=== PATIENT | male | born 1995 | race American Indian/Alaskan Native ===

== ENCOUNTER 2020-12-15 05:59 | Emergency (ER) | payer SELFPAY ==
[2020-12-15] MEDS ORDERED: dexAMETHasone 20 MG/5 ML VIAL IM ONE (06:15)
[2020-12-15] MEDS ORDERED: AMOXICILLIN 500 MG CAP PO ONE (06:15)
[2020-12-15] MEDS ORDERED: IBUPROFEN 800 MG TAB PO ONE (06:15)
--- NOTE | 2020-12-15 06:15 | Emergency Department Report ---
ED General Adult HPI - General Chief complaint: Upper Respiratory Infection Stated complaint: chest pains Time Seen by Provider: 12/15/20 06:10 Source: patient Mode of arrival: Ambulatory Limitations: No Limitations - History of Present Illness Initial comments: Patient a 25-year-old male who presents for sore throat and dysphagia x2 days. Patient has history of strep throat in the past. Pain is described as 510 burning with swallowing. There is some nocturnal fever no T-max recorded at home. There is no nausea vomiting no dizziness no lightheadedness. There is no wheezing or stridor. - Related Data Previous Rx's Medication Instructions Recorded Last Taken Type Amoxicillin [Trimox CAP] 500 mg PO Q8H 7 Days #21 capsule 12/15/20 Unknown Rx Ibuprofen [Motrin 800 MG tab] 800 mg PO Q8HR PRN #30 tablet 12/15/20 Unknown Rx dexAMETHasone [Decadron] 4 mg PO BID 2 Days #4 tablet 12/15/20 Unknown Rx Allergies Allergy/AdvReac Type Severity Reaction Status Date / Time No Known Allergies Allergy Verified 05/29/15 22:44 ED Review of Systems ROS: Stated complaint: chest pains Other details as noted in HPI Constitutional: fever, malaise Eyes: denies: eye pain, eye discharge, vision change ENT: throat pain, congestion. denies: ear pain Respiratory: denies: cough, shortness of breath, wheezing Cardiovascular: denies: chest pain, palpitations Endocrine: no symptoms reported Gastrointestinal: denies: abdominal pain, nausea, vomiting, diarrhea Genitourinary: denies: urgency, dysuria Musculoskeletal: denies: back pain, joint swelling, arthralgia Skin: denies: rash, lesions Neurological: denies: headache, weakness, paresthesias Psychiatric: denies: anxiety, depression Hematological/Lymphatic: denies: easy bleeding, easy bruising ED Past Medical Hx - Past Medical History Hx Hypertension: No Hx CVA: No Hx Heart Attack/AMI: No Hx Congestive Heart Failure: No Hx Diabetes: No Hx Deep Vein Thrombosis: No Hx Pulmonary Embolism: No Hx GERD: No Hx Liver Disease: No Hx Renal Disease: No Hx Sickle Cell Disease: No Hx Arthritis: No Hx Headaches / Migraines: No Hx Seizures: No Hx Kidney Stones: No Hx Psychiatric Treatment: No Hx Asthma: No Hx COPD: No Hx Tuberculosis: No Hx Dementia: No Hx HIV: No - Surgical History Hx Coronary Stent: No Hx Open Heart Surgery: No Hx Pacemaker: No Hx Internal Defibrillator: No Hx Cholecystectomy: No Hx Appendectomy: No Hx Breast Surgery: No - Social History Smoking Status: Never Smoker - Medications Home Medications: Home Medications Medication Instructions Recorded Confirmed Last Taken Type Amoxicillin [Trimox CAP] 500 mg PO Q8H 7 Days #21 capsule 12/15/20 Unknown Rx Ibuprofen [Motrin 800 MG tab] 800 mg PO Q8HR PRN #30 tablet 12/15/20 Unknown Rx dexAMETHasone [Decadron] 4 mg PO BID 2 Days #4 tablet 12/15/20 Unknown Rx ED Physical Exam - General Limitations: No Limitations General appearance: alert, in no apparent distress - Head Head exam: Present: atraumatic, normocephalic - Eye Eye exam: Present: normal appearance, EOMI Pupils: Present: normal accommodation - ENT ENT exam: Present: mucous membranes moist, TM's normal bilaterally, normal external ear exam - Expanded ENT Exam Expanded Throat exam: Positive: tonsillar erythema, tonsillomegaly, tonsillar exudate, other (uvula midline no stridor no wheezing, moderate erythema , exudate, no peritonsilar abscess noted on exam ). Negative: R peritonsillar mass, L peritonsillar mass - Neck Neck exam: Present: normal inspection, full ROM, lymphadenopathy. Absent: tenderness - Respiratory Respiratory exam: Present: normal lung sounds bilaterally. Absent: respiratory distress, wheezes, stridor, chest wall tenderness - Cardiovascular Cardiovascular Exam: Present: regular rate, normal rhythm, normal heart sounds. Absent: systolic murmur, diastolic murmur, rubs, gallop - GI/Abdominal GI/Abdominal exam: Present: soft, normal bowel sounds. Absent: distended, tenderness - Rectal Rectal exam: Present: deferred - Extremities Exam Extremities exam: Present: normal inspection, full ROM - Back Exam Back exam: Present: normal inspection. Absent: CVA tenderness (R), CVA tenderness (L) - Neurological Exam Neurological exam: Present: alert, oriented X3 - Psychiatric Psychiatric exam: Present: normal affect, normal mood - Skin Skin exam: Present: warm, dry, intact, normal color. Absent: rash ED Course Vital Signs 12/15/20 06:03 Temperature 100.7 F H Pulse Rate 117 H Respiratory 18 Rate Blood Pressure 128/78 O2 Sat by Pulse 99 Oximetry ED Medical Decision Making - Radiology Data Radiology results: report reviewed, image reviewed - Medical Decision Making pharyngitis, plan, decadron, ibuprofen, amoxicillin follow up with pcp in 2-3 days, pt verbalized agreement and understanding of same. Critical care attestation.: If time is entered above; I have spent that time in minutes in the direct care of this critically ill patient, excluding procedure time. ED Disposition Clinical Impression: Pharyngitis Qualifiers: Pharyngitis/tonsillitis etiology: unspecified etiology Qualified Code(s): J02.9 - Acute pharyngitis, unspecified Disposition: TO HOME OR SELFCARE Is pt being admited?: No Does the pt Need Aspirin: No Condition: Stable Instructions: Pharyngitis Additional Instructions: warm salt water gargle 2-3 times daily Prescriptions: dexAMETHasone [Decadron] 4 mg PO BID 2 Days #4 tablet Ibuprofen [Motrin 800 MG tab] 800 mg PO Q8HR PRN #30 tablet PRN Reason: pain fever Amoxicillin [Trimox CAP] 500 mg PO Q8H 7 Days #21 capsule Referrals: DANIELE TARANGO MD [Staff Physician] - 3-5 Days Forms: Work/School Release Form(ED) Time of Disposition: 06:19
[2020-12-15 06:31] VITALS: BP 128/78
== END 2020-12-15 06:57 | disposition home or self-care (01) ==
LOC: ED 05:59
DX: J02.9 Acute pharyngitis, unspecified (principal); Z79.899 Other long term (current) drug therapy
CPT/HCPCS: 96372; 99282; J1100

== ENCOUNTER 2021-06-06 19:12 | Emergency (ER) | payer OTHER, SELFPAY ==
[2021-06-06] MEDS ORDERED: ACETAMINOPHEN 500 MG TAB PO ONE (21:42)
[2021-06-06] MEDS ORDERED: SODIUM CHLORIDE 0.9% 1000 ML 1,000 ML IV ONE (21:47)
[2021-06-06] MEDS ORDERED: KETOROLAC 30 MG/1 ML INJ IV ONE (21:47)
[2021-06-06 22:18] LABS: Basophils % (Auto) 0.2 % (0.0-1.8); Eosinophils % (Auto) 0.1 % (0.0-4.3); Hematocrit 46.8 % (35.5-45.6); Hemoglobin 15.5 gm/dl (11.8-15.2); Lymphocytes # (Auto) 0.8 K/mm3 (1.2-5.4); Lymphocytes % (Auto) 19.3 % (13.4-35.0); Mean Corpuscular HGB Conc 33 % (32-34); Mean Corpuscular Volume 93 fl (84-94); Monocytes # (Auto) 0.4 K/mm3 (0.0-0.8); Platelet Count 133 K/mm3 (140-440); Red Blood Count 5.04 M/mm3 (3.65-5.03); Red Cell Distribution Width 12.5 % (13.2-15.2)
[2021-06-06 22:33] LABS: Alanine Aminotransferase 21 units/L (7-56); Albumin 4.7 g/dL (3.9-5); BUN/Creatinine Ratio 19; Blood Urea Nitrogen 19 mg/dL (9-20); Calcium 9.5 mg/dL (8.4-10.2); Hemolysis Index 42
--- NOTE | 2021-06-06 22:43 | XRay Report ---
CHEST 2 VIEWS INDICATION / CLINICAL INFORMATION: COUGH, FEVER, COVID+. COMPARISON: None available. FINDINGS: SUPPORT DEVICES: None. HEART / MEDIASTINUM: No significant abnormality. LUNGS / PLEURA: No significant pulmonary or pleural abnormality. No pneumothorax. ADDITIONAL FINDINGS: No significant additional findings. IMPRESSION: 1. No acute findings. Signer Name: Mando Herring MD Signed: 06/06/2021 10:38 PM Workstation Name: [id number]
--- NOTE | 2021-06-06 23:44 | Emergency Department Report ---
ED General Adult HPI - General Chief complaint: Weakness Stated complaint: COVID+ BODY PAIN WEAKNESS SOB Source: patient Mode of arrival: Ambulatory Limitations: No Limitations - History of Present Illness Initial comments: Patient is a 25-year-old -[place] male with no past medical history presents to the ED with complaint of acute onset persistent severe diffuse body aches and pains, nausea, chills, fever intermittently over up to 101 F, nasal and sinus congestion, dry cough, generalized fatigue, generalized weakness, lack of appetite, loss of sense of smell and sense of taste for the last 4 days. Patient states that he tested positive for COVID-19 viral infection 24 hours ago and that in the last 12 hours his symptoms have worsened. Patient states that no one else at home has had similar symptoms. Patient denies dizziness, syncope, vomiting, diarrhea, dysuria, urinary frequency and urgency, chest pain, shortness of breath, sore throat, change in vision or headache. MD Complaint: Diffuse body aches and pains, weakness and fatigue, fever, chills -: Sudden, days(s) (3) Location: back, upper extremity, lower extremity Radiation: non-radiation Severity scale (0 -10): 5 Quality: aching, sharp, constant Consistency: constant Improves with: none Associated Symptoms: denies other symptoms, cough, fever/chills, headaches, loss of appetite, malaise, nausea/vomiting, weakness. denies: confusion, chest pain, diaphoresis, rash, seizure, shortness of breath, syncope Treatments Prior to Arrival: none - Related Data Previous Rx's Medication Instructions Recorded Last Taken Type Amoxicillin [Trimox CAP] 500 mg PO Q8H 7 Days #21 capsule 12/15/20 Unknown Rx Ibuprofen [Motrin 800 MG tab] 800 mg PO Q8HR PRN #30 tablet 12/15/20 Unknown Rx dexAMETHasone [Decadron] 4 mg PO BID 2 Days #4 tablet 12/15/20 Unknown Rx Acetaminophen 500 mg PO Q6H PRN #30 capsule 06/06/21 Unknown Rx Ascorbic Acid [Vitamin C] 1,000 mg PO Q12H #30 tablet 06/06/21 Unknown Rx Benzonatate [Tessalon Perles] 100 mg PO Q8HR #30 capsule 06/06/21 Unknown Rx Ondansetron [Zofran Odt] 4 mg PO Q8HR PRN #15 tab.rapdis 06/06/21 Unknown Rx Zinc Acetate [Galzin 50mg CAP] 50 mg PO DAILY #20 capsule 06/06/21 Unknown Rx Allergies Allergy/AdvReac Type Severity Reaction Status Date / Time No Known Allergies Allergy Verified 05/29/15 22:44 ED Review of Systems ROS: Stated complaint: COVID+ BODY PAIN WEAKNESS SOB Other details as noted in HPI Constitutional: chills, fever, malaise, weakness Eyes: denies: eye pain, eye discharge, vision change ENT: congestion. denies: ear pain, throat pain Respiratory: cough. denies: shortness of breath, wheezing Cardiovascular: denies: chest pain, palpitations Endocrine: no symptoms reported Gastrointestinal: nausea. denies: abdominal pain, vomiting, diarrhea Genitourinary: denies: urgency, dysuria Musculoskeletal: back pain, arthralgia, myalgia. denies: joint swelling Skin: denies: rash, lesions Neurological: headache. denies: weakness, paresthesias Psychiatric: denies: anxiety, depression Hematological/Lymphatic: denies: easy bleeding, easy bruising ED Past Medical Hx - Past Medical History Hx Hypertension: No Hx CVA: No Hx Heart Attack/AMI: No Hx Congestive Heart Failure: No Hx Diabetes: No Hx Deep Vein Thrombosis: No Hx Pulmonary Embolism: No Hx GERD: No Hx Liver Disease: No Hx Renal Disease: No Hx Sickle Cell Disease: No Hx Arthritis: No Hx Headaches / Migraines: No Hx Seizures: No Hx Kidney Stones: No Hx Psychiatric Treatment: No Hx Asthma: No Hx COPD: No Hx Tuberculosis: No Hx Dementia: No Hx HIV: No - Surgical History Hx Coronary Stent: No Hx Open Heart Surgery: No Hx Pacemaker: No Hx Internal Defibrillator: No Hx Cholecystectomy: No Hx Appendectomy: No Hx Breast Surgery: No - Social History Smoking Status: Never Smoker - Medications Home Medications: Home Medications Medication Instructions Recorded Confirmed Last Taken Type Amoxicillin [Trimox CAP] 500 mg PO Q8H 7 Days #21 capsule 12/15/20 Unknown Rx Ibuprofen [Motrin 800 MG tab] 800 mg PO Q8HR PRN #30 tablet 12/15/20 Unknown Rx dexAMETHasone [Decadron] 4 mg PO BID 2 Days #4 tablet 12/15/20 Unknown Rx Acetaminophen 500 mg PO Q6H PRN #30 capsule 06/06/21 Unknown Rx Ascorbic Acid [Vitamin C] 1,000 mg PO Q12H #30 tablet 06/06/21 Unknown Rx Benzonatate [Tessalon Perles] 100 mg PO Q8HR #30 capsule 06/06/21 Unknown Rx Ondansetron [Zofran Odt] 4 mg PO Q8HR PRN #15 tab.rapdis 06/06/21 Unknown Rx Zinc Acetate [Galzin 50mg CAP] 50 mg PO DAILY #20 capsule 06/06/21 Unknown Rx ED Physical Exam - General Limitations: No Limitations General appearance: alert, in no apparent distress - Head Head exam: Present: atraumatic, normocephalic, normal inspection - Eye Eye exam: Present: normal appearance, PERRL, EOMI Pupils: Present: normal accommodation - ENT ENT exam: Present: normal exam, normal orophraynx, mucous membranes moist, TM's normal bilaterally, normal external ear exam - Neck Neck exam: Present: normal inspection, full ROM - Respiratory Respiratory exam: Present: normal lung sounds bilaterally. Absent: respiratory distress, wheezes, rales, rhonchi, chest wall tenderness, accessory muscle use, decreased breath sounds, prolonged expiratory - Cardiovascular Cardiovascular Exam: Present: regular rate, normal rhythm, normal heart sounds. Absent: systolic murmur, diastolic murmur, rubs, gallop - GI/Abdominal GI/Abdominal exam: Present: soft, normal bowel sounds. Absent: tenderness, guarding, rebound, hyperactive bowel sounds, hypoactive bowel sounds, organomegaly - Extremities Exam Extremities exam: Present: normal inspection, full ROM, normal capillary refill - Back Exam Back exam: Present: normal inspection, full ROM. Absent: tenderness, CVA tenderness (R), CVA tenderness (L), muscle spasm, paraspinal tenderness, vertebral tenderness, rash noted - Neurological Exam Neurological exam: Present: alert, oriented X3, CN II-XII intact, normal gait, reflexes normal - Psychiatric Psychiatric exam: Present: normal affect, normal mood - Skin Skin exam: Present: warm, dry, intact, normal color. Absent: rash ED Course Vital Signs 06/06/21 06/06/21 21:36 23:46 Temperature 101.8 F H 98.9 F Pulse Rate 97 H 74 Respiratory 18 18 Rate Blood Pressure 110/71 121/63 [Left] O2 Sat by Pulse 97 98 Oximetry ED Medical Decision Making - Lab Data Result diagrams: 06/06/21 22:01 06/06/21 22:01 - Radiology Data Radiology results: report reviewed, image reviewed [facility] [address] [place] [address] XRay Report Signed Patient: CK LOUIS MR#: [id number] : 1995 Acct:[id number] Age/Sex: 25 / M ADM Date: 06/06/21 Loc: ED Attending Dr: Ordering Physician: JOSE DE JESUS HERNANDEZ Date of Service: 06/06/21 Procedure(s): XR chest routine 2V Accession Number(s): [id number] cc: JOSE DE JESUS HERNANDEZ Fluoro Time In Minutes: CHEST 2 VIEWS INDICATION / CLINICAL INFORMATION: COUGH, FEVER, COVID+. COMPARISON: None available. FINDINGS: SUPPORT DEVICES: None. HEART / MEDIASTINUM: No significant abnormality. LUNGS / PLEURA: No significant pulmonary or pleural abnormality. No pneumothorax. ADDITIONAL FINDINGS: No significant additional findings. IMPRESSION: 1. No acute findings. Signer Name: Ralf Herring MD Signed: 06/06/2021 10:38 PM Workstation Name: [id number] Transcribed By: DB Dictated By: RALF HERRING MD Electronically Authenticated By: RALF HERRING MD Signed Date/Time: 06/06/212237 DD/ 37 TD/TT: - Medical Decision Making This is a 25-year-old -[place] male with no past medical history pre sents to the ED with complaint of acute onset persistent severe diffuse body aches and pains, nausea, chills, fever intermittently over up to 101 F, nasal and sinus congestion, dry cough, generalized fatigue, generalized weakness, lack of appetite, loss of sense of smell and sense of taste for the last 4 days. Patient states that he tested positive for COVID-19 viral infection 24 hours ago and that in the last 12 hours his symptoms have worsened. Patient states that no one else at home has had similar symptoms. In the ED, patient is alert and oriented x3 and is not in any distress but febrile in triage. Patient oxygen saturation is 97 to 99% in room air. Patient was treated for fever in the ED and also given pain medications and normal saline 1 L IV bolus x1. Lab test results were reviewed and are all nonactionable. Chest x-ray showed no acute cardiopulmonary abnormalities or pneumonitis. On reevaluation, patient's fever resolved medication. Patient felt better and was discharged home on medications and advised to self quarantine at home for 10 days while taking medications and drinking fluids. Patient was advised to follow-up with his primary care physician after his self quarantine is complete. Patient was advised otherwise return to the ED immediately if symptoms get worse. - Differential Diagnosis COVID-19; URI; bronchitis; pneumonia; viral syndrome Critical care attestation.: If time is entered above; I have spent that time in minutes in the direct care of this critically ill patient, excluding procedure time. ED Disposition Clinical Impression: COVID-19 virus infection, Flu-like symptoms, Fever and chills Disposition: 01 HOME / SELF CARE / HOMELESS Is pt being admited?: No Does the pt Need Aspirin: No Condition: Stable Instructions: COVID-19 Frequently Asked Questions, General Headache Without Cause, [id number], Fever, Adult, [id number] Additional Instructions: All lab test results were reviewed and are all nonactionable. Chest x-ray showed no acute cardiopulmonary abnormalities or pneumonitis. Your vital signs are stable and the oxygen saturation in room air ranges from 97% to 99% in room air. Therefore continue to self quarantine at home for 10 days while taking medications including fluids and pain medication. Follow-up with your primary care physician after your quarantine time is complete and return to the ED immediately if symptoms get worse. Prescriptions: Acetaminophen 500 mg PO Q6H PRN #30 capsule PRN Reason: pain or fever Zinc Acetate [Galzin 50mg CAP] 50 mg PO DAILY #20 capsule Benzonatate [Tessalon Perles] 100 mg PO Q8HR #30 capsule Ascorbic Acid [Vitamin C] 1,000 mg PO Q12H #30 tablet Ondansetron [Zofran Odt] 4 mg PO Q8HR PRN #15 tab.rapdis PRN Reason: Nausea Referrals: [facility] [Provider Group] - 7-10 days Forms: Work/School Release Form(ED) Time of Disposition: 23:47 Print Language: LATVIAN
[2021-06-06 23:47] VITALS: BP 121/63
== END 2021-06-07 01:15 | disposition home or self-care (01) ==
LOC: ED 19:12
DX: U07.1 COVID-19 (principal); Z79.899 Other long term (current) drug therapy
CPT/HCPCS: 36415; 71046; 80053; 85025; 96361; 96374; 99284; J1885; J7030